=== PATIENT | male | born 1980 | race Caucasian/White ===

== ENCOUNTER 2023-05-09 12:26 | Outpatient (CLI) | payer BC, SELFPAY ==
[2023-05-09 12:58] LABS: Appearance Urine Clear (Clear); Bacteria Urine None Seen /hpf; Bilirubin Urine Negative (Negative); Blood Urine 2+ (Negative); Color Urine Yellow (Yellow); Glucose Urine UA Negative (Negative); Ketones Urine Trace mg/dL (Negative); Leukocyte Esterase Ur Negative LEU/UL (Negative); Nitrate Urine Negative (Negative); Non Pathogenic Casts 0-2; Protein Urine 1+ mg/dL (Negative); Specific Grav Ur 1.025 (1.001-1.035); Squamous Epithelial Cell Urine None seen /hpf (Few); Urobilinogen Urine 0.2 mg/dL (<2.0); WBC Urine 0-5 /hpf; pH Urine 5.5 (5.0-9.0)
[2023-05-09 13:02] LABS: Prothrombin Time 13.3 Seconds (11.1-14.7)
[2023-05-09 13:03] LABS: Partial Thromboplastin Time 32.9 SECONDS (22.3-36.8)
[2023-05-09 13:07] LABS: Add Urine Microscopic? YES
== END 2023-05-09 12:27 | disposition home or self-care (01) ==
LOC: ANHSURGERY 12:30
PROVIDERS: PCP Family Medicine; Visit Provider Urology
DX: N20.0 Calculus of kidney (principal); Z01.818 Encounter for other preprocedural examination
CPT/HCPCS: 36415; 81001; 85610; 85730

== ENCOUNTER 2023-05-11 01:27 | Day surgery (SDC) | payer BC, SELFPAY ==
[2023-05-09 09:51] VITALS: BMI 39.2
--- NOTE | 2023-05-09 09:52 | PC.NURSE ---
Report to the Outpatient Waiting Room, entrance under the green pavilion located off [facility], at time _1030_ on date _05-11-2023_. Planned Procedure Time: _1230_. Time changes happen often and if your time is changed the preop area will call you the afternoon before. - You and your visitor will be asked to self-screen and do not enter if you have any COVID symptoms. - A mask is optional within the hospital at this time. Patients may have clear liquids (water, carbonated beverages, clear teas, apple juice) until 3 hours prior to surgery with a maximum of 20 ounces. - No food from midnight until time of surgery Take the following medications with a SIP of water the morning of surgery: Qvar, and pain med if needed. DO NOT STOP ANY OF YOUR OTHER PRESCRIPTION MEDICATIONS PRIOR TO SURGERY ?EXCEPT THE FOLLOWING Medications to discontinue per physician None Date to take last dose Please no make-up, nail azerbaijani, hairspray, perfume, deodorant, or body powder the day of surgery. No jewelry (including any body piercings) or valuables the day of surgery, leave them at home. Please take a shower or bath the night before, or the morning of, surgery with an antibacterial soap. Wear comfortable, loose fitting clothing. - Jewelry must be removed prior to entering the operating room. Rings and piercings that are not removed may be cut off. - The hospital will not accept responsibility for valuables. - Please leave all valuables, including medications, at home the day of surgery. If you are going home after surgery, a licensed funeral limousine driver must drive you home. - NO public transportation without another adult if you receive anesthesia. - We recommend that an adult stay with you for 24 hours following discharge. - We also recommend that you do not drive, make important decision, drink alcoholic beverages, or take any drugs that were not prescribed by your health care provider for at least 24 hours after your discharge time. Follow any additional instructions given to you from your surgeon. If you or anyone in your household have experienced Covid symptoms in the past week, please notify your surgeon or the nurse liaison at the phone number below for possible testing. Telephone instructions given to __Patient__and asked if any additional questions and then verbalized understanding. Patient advised to call surgeon office or pre surgery nurse liaison [phone] if any additional questions.
[2023-05-11] VITALS (11 sets, daily range): BP systolic 147–188; BP diastolic 90–117; PULSE 67–92; RESP 16–20; TEMP 36.4–37; O2SAT 97–100; BMI 38.7
--- NOTE | ~2023-05-11 | XR_ITS ---
EXAMINATION: XR abdomen/kub 1V DATE: 05/11/2023 10:40 INDICATION: Kidney stone. TECHNIQUE: A supine view of the abdomen on 2 radiographs was obtained. COMPARISON: None. FINDINGS: There are no dilated loops of bowel. There is a 6 mm stone in proximal left ureter. There i s an 8 mm calcification in left pelvis. IMPRESSION: 1. 6 mm stone in proximal left ureter. 2. 8 mm calcification in left pelvis that may be a phlebolith or distal left ureteral stone. Reviewed, dictated and finalized at location E. IMPRESSION: 1. 6 mm stone in proximal left ureter. 2. 8 mm calcification in left pelvis that may be a phlebolith or distal left ur eteral stone.
--- NOTE | 2023-05-11 11:11 | WPDHPUPDATE1 ---
History and Physical Update Update Date/Time: 05/11/23 11:11 History and Physical has been reviewed, including an updated exam of the patient. There are NO changes in the patient's condition. Risks, benefits, and alternatives have been discussed and questions answered. Patient agrees to proceed with procedure. Proceed with left ureteral lithotripsy
[2023-05-11] MEDS: LACTATED RINGERS 1,000 ML 30 ML IV CONT (11:45)
[2023-05-11] MEDS: levoFLOXacin 500 MG/D5W 100 ML 500 MG/100 ML BAG 100 MG IVPB (11:47)
--- NOTE | 2023-05-11 12:22 | W.PM.PROC2 ---
Procedure Note - Detailed Date of Procedure 05/11/23 Pre-op Diagnosis left ureteral stone Post-op Diagnosis Same Procedure Performed Lithotripsy of left ureteral calculus. Surgeon Jesse Campbell MD Anesthesia General Description of Procedure Patient was taken the operative suite correctly identified. Once anesthesia was obtained the stone was localized from an anterior approach. Three thousand shocks were given to the stone. Difficult to tell the amount of fragmentation at this point time. Patient is taken recovery stable condition. Patient will follow-up in 7-10 days with KUB. This completes dictation on this patient. Please send a copy of this op note to my office Drains No Packing No Pathology None sent Complications No immediate complications Condition Stable Disposition PACU
--- NOTE | 2023-05-11 12:56 | SUR.PHASEI ---
1255 - dr. garza aware of pt's b/p. no orders received at this time.
[2023-05-11] MEDS: hydrALAZINE HCL 20 MG/ML VIAL 10 MG IV PUSH (14:30)
== END 2023-05-11 15:25 | disposition home or self-care (01) ==
PROVIDERS: PCP Family Medicine; Visit Provider Urology
PROC: (CPT 50590; principal; 2023-05-11 12:30)
DX: N20.1 Calculus of ureter (principal)
CPT/HCPCS: 50590; 74018; J0360; J1100; J1956; J2250; J2405; J2704; J3010; J7120

== ENCOUNTER 2023-06-15 10:33 | Outpatient (CLI) | payer BC, SELFPAY ==
--- NOTE | ~2023-06-15 | XR_ITS ---
XR abdomen/kub 1V 06/15/2023 10:48 INDICATION: Left ureteral stone TECHNIQUE: KUB COMPARISON: 05/11/2023 FINDINGS: Bowel gas pattern is normal. There is no evidence of free air, mass, organomegaly, ascites or obstruction. No abnormal calculi are seen. The bones appear intact. IMPRESSION: 1: No acute abdominal abnormality identified. Reviewed, dictated and finalized at location A.
== END 2023-06-15 10:34 | disposition home or self-care (01) ==
PROVIDERS: PCP Family Medicine; Visit Provider Physician Assistant
DX: N20.1 Calculus of ureter (principal)
CPT/HCPCS: 74018

== ENCOUNTER 2024-06-20 07:06 | Outpatient (CLI) | payer BC, SELFPAY ==
--- NOTE | ~2024-06-20 | XR_ITS ---
AP and lateral views of the right hip Clinical history: Pain Findings: No acute fracture or dislocation is seen. Osseous alignment is anatomic. Right hip joint is intact. Soft tissues are unremarkable. Impression: No significant abnormality is seen. Reviewed, dictated and finalized at location M. [employer] Impression: No significant abnormality is seen.
--- NOTE | ~2024-06-20 | XR_ITS ---
Right Knee Technique: AP, lateral, and sunrise views were obtained. Clinical History: Pain Findings: No fracture or dislocation is seen. Osseous alignment is anatomic. Mild tricompartmental de generative spurring present. Soft tissues are unremarkable. No joint effusion is seen. Impression: Mild tricompartmental degenerative spurring. Reviewed, dictated and finalized at location . [employer] [place] Impression: Mild tricompartmental degenerative spurring.
== END 2024-06-20 07:07 | disposition home or self-care (01) ==
PROVIDERS: PCP Family Medicine
DX: M25.561 Pain in right knee (principal); M23.51 Chronic instability of knee, right knee
CPT/HCPCS: 73502; 73562

== ENCOUNTER 2025-05-08 08:32 | Outpatient (CLI) | payer BC, SELFPAY ==
--- NOTE | ~2025-05-08 | MR_ITS ---
EXAMINATION: MR knee RT wo con DATE: 05/08/2025 08:58 INDICATION: Right knee pain. TECHNIQUE: Magnetic resonance imaging (MRI) of the right knee was performed without intravenous contrast. Sequences included axial PD-weighted FS FSE, coronal PD-weighted FSE and PD-weighted FS FSE, sagittal PD-weighted FSE, and sagittal T2-weighted FS FSE. COMPARISON: Right knee radiographs 06/20/2024 FINDINGS: Medial compartment: Medial meniscus is normal. Medial compartment cartilage is normal. There are marginal osteophytes. Lateral compartment: There is a radial tear of lateral meniscus at the junction of the body and posterior horn. There is full-thickness cartilage loss of tibial condyle posteriorly and laterally. There is full-thickness cartilage loss of femoral condyle involving the central and lateral articular surface. Osteophytes are n oted. There is mild subchondral edema-like marrow signal intensity of tibial condyle and femoral condyle. Osteophytes are noted. Patellofemoral compartment: There is cartilage surface irregularity of patella and trochlea. Osteophytes are noted. Ligaments and tendons: There is thickening and increased signal involving anterior cruciate ligament and posterior cruciate ligament, most likely mucoid degeneration. There is edema-like marrow signal intensity in distal femur centered at the intercondylar notch. There are changes of prior sprains of medial collateral ligament and lateral collateral ligament characterized by thickening and increased signal intensity proximally. There is mild patellar tendinopathy. Fluid: There is a small knee joint effusion. There are loose bodies anterior to the lateral meniscus measuring up to 12 mm. There is a small Echols's cyst. There is mild prepatellar and superficial infrapatellar bursitis. IMPRESSION: 1. 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 2. Tear of lateral meniscus. 3. Small knee joint effusion with loose bodies. 4. Thickening and increased signal involving anterior cruciate ligament and posterior cruciate ligament, most likely mucoid degeneration. 5. Small Echols's cyst. Reviewed, dictated and finalized at location E. IMPRESSION: 1. Severe chondrosis of lateral compartment and mild chondrosis of patellofemor al compartment. 2. Tear of lateral meniscus. 3. Small knee joint effusion with loose bodies. 4. Thickening and increased signal involving anterior cruciate ligament and pos terior cruciate ligament, most likely mucoid degeneration. 5. Small Echols's cyst.
== END 2025-05-08 08:33 | disposition home or self-care (01) ==
PROVIDERS: PCP Family Medicine; Visit Provider Orthopaedic Surgery
DX: M94.261 Chondromalacia, right knee (principal); S83.521A Sprain of posterior cruciate ligament of right knee, initial encounter; S83.281A Other tear of lateral meniscus, current injury, right knee, initial encounter; X58.XXXA Exposure to other specified factors, initial encounter; M23.41 Loose body in knee, right knee; M25.461 Effusion, right knee; M71.21 Synovial cyst of popliteal space [Baker], right knee; M23.611 Other spontaneous disruption of anterior cruciate ligament of right knee
CPT/HCPCS: 73721